=== PATIENT | female | born 1955 ===

== ENCOUNTER → 2018-03-18 17:44 | Outpatient (REF) | payer SELFPAY ==
[2018-03-18 18:19] LABS: Erythrocyte Sedimentation Rate 30 MM/HR (0-20)
== END ==
LOC: LAB 17:44
PROVIDERS: Visit Provider Internal Medicine Gastroenterology
DX: K50.90 Crohn's disease, unspecified, without complications (principal)
CPT/HCPCS: 85651

== ENCOUNTER → 2018-04-13 20:16 | Outpatient (REF) | payer OTHER, SELFPAY ==
[2018-04-13 20:57] LABS: Erythrocyte Sedimentation Rate 39 MM/HR (0-20)
== END ==
LOC: LAB 20:16
PROVIDERS: Visit Provider Internal Medicine Gastroenterology
DX: K51.90 Ulcerative colitis, unspecified, without complications (principal)
CPT/HCPCS: 85651